=== PATIENT | female | born 1990 | race Caucasian/White ===

== ENCOUNTER 2022-02-08 07:38 | Inpatient (IN) | payer BC ==
[2022-02-08 08:38] VITALS: BMI 39.3
[2022-02-08] MEDS ORDERED: Carboprost 250 MCG/ML AMP IM PRN (08:47)
[2022-02-08] MEDS ORDERED: Acetaminophen 500 MG TAB PO PRN (08:47)
[2022-02-08] MEDS ORDERED: Misoprostol 200 MCG TAB PR PRN (08:47)
[2022-02-08] MEDS ORDERED: Ibuprofen 800 MG TAB PO PRN (08:47)
[2022-02-08] MEDS ORDERED: Promethazine HCl 25 MG/ML VIAL IM PRN (08:47)
[2022-02-08] MEDS ORDERED: Methylergonovine 0.2 MG/ML VIAL IM PRN ×2 (08:47→13:54)
[2022-02-08] MEDS ORDERED: Lidocaine 1% (PF) 30 ML VIAL SC PRN (08:47)
[2022-02-08] MEDS ORDERED: Diphenoxylate HCl/Atropine Tablet PO PRN (08:47)
[2022-02-08] MEDS ORDERED: Ondansetron PF 4 MG/2 ML Vial IVP PRN ×2 (08:47→13:54)
[2022-02-08] MEDS ORDERED: HYDROcodone/Acetaminophen 5/325 mg Tablet PO PRN ×4 (08:47→13:54)
[2022-02-08] MEDS ORDERED: Butorphanol Tartrate 1 MG/ML VIAL SLOW IVP PRN (08:47)
[2022-02-08] MEDS ORDERED: hydrALAZINE 20 MG/ML VIAL SLOW IVP PRN ×2 (08:47→13:54)
[2022-02-08] MEDS ORDERED: Lactated Ringer's 1,000 ML IV SCH (09:00)
[2022-02-08] MEDS ORDERED: NS w/ Oxytocin 30 units 500 ML IV SCH ×3 (09:00→13:54)
[2022-02-08 09:55] LABS: Mean Corpuscular Hemoglobin 27.1 pg (27.0-33.0); Mean Corpuscular Volume 82.2 fl (81.6-98.3); Mean Platelet Volume 10.1 fl (7.4-10.4); Platelet Count 322 10x3/uL (150-450); RBC Distribution Width 14.2 % (11.5-14.5); Red Blood Cell (RBC) Count 4.43 10x6/uL (3.90-5.03); White Blood Cell (WBC) Count 12.1 10x3/uL (3.5-10.5)
[2022-02-08 10:32] LABS: Hep B Surf Ag Non-Reactive S/CO (NonReactive)
[2022-02-08 10:34] LABS: Syphilis Antibody Nonreactive (Nonreactive); Syphilis Antibody Index 0.03 S/CO (<1.00 Non-Reactive)
[2022-02-08 10:35] LABS: HBSAg Index 0.18 S/CO (0-0.99)
[2022-02-08] MEDS ORDERED: Lidocaine 1% PF 10 ML AMP ONE (11:47)
[2022-02-08] MEDS ORDERED: Ketorolac Tromethamine 30 MG/ML VIAL ONE (11:58)
[2022-02-08] MEDS ORDERED: Bisacodyl 10 MG SUPP PR PRN (13:54)
[2022-02-08] MEDS ORDERED: Milk Of Magnesia 30 ML UDCUP PO PRN (13:54)
[2022-02-08] MEDS ORDERED: Benzocaine-Menthol 82.5 ML CAN TOP PRN (13:54)
[2022-02-08] MEDS ORDERED: Lanolin Ointment 7 GM TUBE TOP PRN (13:54)
[2022-02-08] MEDS ORDERED: Misoprostol 200 MCG TAB VAG PRN (13:54)
[2022-02-08 15:38] LABS: SARS-CoV-2 NAA Rapid Test Not Detected (NotDetected)
[2022-02-08] MEDS: Ferrous Sulfate 325 MG TAB PO SCH (17:40)
[2022-02-08] MEDS ORDERED: Ibuprofen 800 MG TAB PO SCH (20:00)
[2022-02-08] MEDS: Ibuprofen 800 MG TAB PO SCH (21:58)
[2022-02-08] MEDS: Docusate 100 MG CAP PO SCH (21:58)
[2022-02-09] MEDS: Ibuprofen 800 MG TAB PO SCH (06:24)
[2022-02-09] MEDS: Ferrous Sulfate 325 MG TAB PO SCH (07:20)
[2022-02-09] MEDS ORDERED: Prenatal Vitamin 1 TAB PO SCH (09:00)
[2022-02-09] MEDS: Docusate 100 MG CAP PO SCH (09:13)
[2022-02-09 12:07] VITALS: BP 121/58; TEMP 97.6
== END 2022-02-09 13:53 | disposition home or self-care (01) | DRG 807 ==
LOC: CSHLD/OP 07:38 → CSHLD 08:46 → CSHPP 14:12
PROVIDERS: ADMIT Obstetrics & Gynecology; ATTEND Obstetrics & Gynecology
PROC: 10E0XZZ Delivery of Products of Conception, External Approach (ICD-10-PCS; principal; 2022-02-08)
PROC: 0KQM0ZZ Repair Perineum Muscle, Open Approach (ICD-10-PCS; 2022-02-08)
DX: O99.214 Obesity complicating childbirth (principal); Z37.0 Single live birth; E66.9 Obesity, unspecified; Z20.822 Contact with and (suspected) exposure to COVID-19; Z3A.40 40 weeks gestation of pregnancy; O34.13 Maternal care for benign tumor of corpus uteri, third trimester; D25.9 Leiomyoma of uterus, unspecified; O70.1 Second degree perineal laceration during delivery; Z90.49 Acquired absence of other specified parts of digestive tract; Z90.89 Acquired absence of other organs; O69.81X0 Labor and delivery complicated by cord around neck, without compression, not applicable or unspecified
CPT/HCPCS: 85027; 86780; 86850; 86900; 86901; 87340; J2001; U0002

== ENCOUNTER 2024-06-21 22:41 | Inpatient (IN) | payer BC ==
[2024-06-21 23:00] VITALS: BMI 41.3
[2024-06-21] MEDS ORDERED: hydrALAZINE 20 MG/ML VIAL SLOW IVP PRN (23:15)
[2024-06-22] MEDS ORDERED: Promethazine HCl 25 MG/ML VIAL IM PRN (00:58)
[2024-06-22] MEDS ORDERED: hydrALAZINE 20 MG/ML VIAL SLOW IVP PRN ×2 (00:58→04:26)
[2024-06-22] MEDS ORDERED: Tranexamic Acid 1,000 MG/10 ML VIAL IVP PRN (00:58)
[2024-06-22] MEDS ORDERED: fentaNYL 50 mcg/mL 1 mL Vial SLOW IVP PRN (00:58)
[2024-06-22] MEDS ORDERED: Misoprostol 200 MCG TAB PR PRN (00:58)
[2024-06-22] MEDS ORDERED: Lactated Ringer's 1,000 ML IV PRN (00:58)
[2024-06-22] MEDS ORDERED: Lidocaine 1% (PF) 30 ML VIAL SC PRN (00:58)
[2024-06-22] MEDS ORDERED: HYDROcodone/Acetaminophen 5/325 mg Tablet PO PRN ×4 (00:58→04:26)
[2024-06-22] MEDS ORDERED: Ibuprofen 800 MG TAB PO PRN (00:58)
[2024-06-22] MEDS ORDERED: Methylergonovine 0.2 MG/ML VIAL IM PRN ×2 (00:58→04:26)
[2024-06-22] MEDS ORDERED: Oxytocin 30 units/NS 500 ML 500 ML IV SCH ×2 (01:00→04:26)
[2024-06-22] MEDS: Ondansetron PF 4 MG/2 ML Vial IVP PRN (01:14)
[2024-06-22 01:45] LABS: Hematocrit 37.2 % (34.9-44.5); Hemoglobin 12.1 g/dL (12.0-15.5); Mean Corpuscular HGB CONC 32.5 g/dL (32.0-36.0); Mean Corpuscular Hemoglobin 26.8 pg (27.0-33.0); Mean Corpuscular Volume 82.5 fL (81.6-98.3); Mean Platelet Volume 10.1 fL (7.4-10.4); Platelet Count 395 10x3/uL (150-450); Red Blood Cell (RBC) Count 4.51 10x6/uL (3.90-5.03); White Blood Cell (WBC) Count 15.4 10x3/uL (3.5-10.5)
[2024-06-22 02:09] LABS: Hep B Surf Ag - L&D Non-Reactive S/CO (NonReactive)
[2024-06-22 02:10] LABS: Syphilis Antibody Nonreactive (Nonreactive); Syphilis Antibody Index 0.05 S/CO (<1.00 Non-Reactive)
[2024-06-22] MEDS ORDERED: Boostrix 0.5 ML (Tdap) VIAL (>/=7 yrs of age) IM ONE (04:26)
[2024-06-22] MEDS ORDERED: Misoprostol 200 MCG TAB VAG PRN (04:26)
[2024-06-22] MEDS ORDERED: Bisacodyl 10 MG SUPP PR PRN (04:26)
[2024-06-22] MEDS ORDERED: Ondansetron PF 4 MG/2 ML Vial IVP PRN (04:26)
[2024-06-22] MEDS ORDERED: Milk Of Magnesia 30 ML UDCUP PO PRN (04:26)
[2024-06-22] MEDS: Ibuprofen 800 MG TAB PO SCH (06:30)
[2024-06-22] MEDS: Prenatal Vitamin 1 TAB PO SCH (07:32)
[2024-06-22] MEDS: Docusate 100 MG CAP PO SCH (07:32)
[2024-06-22] MEDS: Ferrous Sulfate 325 MG TAB PO SCH (07:34)
[2024-06-22] MEDS: Benzocaine-Menthol 82.5 ML CAN TOP PRN (13:33)
[2024-06-23 08:16] VITALS: BP 125/58; TEMP 97.5
== END 2024-06-23 12:49 | disposition home or self-care (01) | DRG 807 ==
LOC: CSHLD/OP 22:41 → CSHLD 06-22 00:58 → CSHPED 06-22 05:33
PROVIDERS: ADMIT Obstetrics & Gynecology; ATTEND Obstetrics & Gynecology
PROC: 10E0XZZ Delivery of Products of Conception, External Approach (ICD-10-PCS; principal; 2024-06-22)
PROC: 0KQM0ZZ Repair Perineum Muscle, Open Approach (ICD-10-PCS; 2024-06-22)
DX: O48.0 Post-term pregnancy (principal); Z37.0 Single live birth; Z3A.40 40 weeks gestation of pregnancy; O70.1 Second degree perineal laceration during delivery
CPT/HCPCS: 36415; 85027; 86780; 86850; 86870; 86900; 86901; 86922; 87340; 99285; J2405; J2590